=== PATIENT | male | born 1975 | race Caucasian/White ===

== ENCOUNTER 2017-02-21 01:32 | Emergency (ER) | payer MEDICARE, OTHER, MEDICAID ==
--- NOTE | 2017-02-21 02:28 | ER Document Report ---
ED Psych Disorder / Suicide - General Chief Complaint: Psych Problem Stated Complaint: IVC WITH PAPERS Time Seen by Provider: 02/21/17 02:15 TRAVEL OUTSIDE OF THE [place] IN LAST 30 DAYS: No - HPI Notes: This is a 41-year-old male with history of type 2 diabetes presents with IVC papers. Apparently he has been in people that he is worthless and he has been considered to be suicidal. Also he has not been sleeping at all last 5 days. Reported to staff that he had taken quite a few extra OxyContin for the last period of time. He at this point has no physical complaints to me. He is awakened and states he is sleepy. Denies any new pain to me. There was a note that he had fallen and injured his elbow - Related Data Allergies/Adverse Reactions: Sulfa (Sulfonamide Antibiotics) Allergy (Verified 02/21/17 01:47) Home Medications: Current Home Medications Allopurinol [Zyloprim 100 mg Tablet] 100 mg PO BID 02/21/17 [History] Alprazolam 1 mg PO PRN 02/21/17 [History] Duloxetine HCl [Cymbalta] 60 mg PO DAILY 02/21/17 [History] Esomeprazole Mag Trihydrate [Nexium] 40 mg PO DAILY 02/21/17 [History] Linagliptin [Tradjenta] 5 mg PO DAILY 02/21/17 [History] Lisinopril/Hydrochlorothiazide [Lisinopril-Hctz 20-25 mg Tab] 1 tab PO DAILY [History] Past Medical History - General Information source: Patient, Relative - Social History Smoking Status: Current Every Day Smoker Family History: Reviewed & Not Pertinent Patient has suicidal ideation: No Patient has homicidal ideation: No Endocrine Medical History: Reports: Hx Diabetes Mellitus Type 2 Renal/ Medical History: Denies: Hx Peritoneal Dialysis Psychiatric Medical History: Reports: Other - Unspecified mental disorder with IQ 81 per report Review of Systems - Review of Systems -: Yes All other systems reviewed and negative Physical Exam - Vital signs Vitals: Temp Pulse Resp BP Pulse Ox 97.9 F 97 20 118/74 96 02/21/17 01:41 02/21/17 01:41 02/21/17 01:41 02/21/17 01:41 02/21/17 01:41 - Notes Notes: GENERAL: VS as per nursing doc. Well-appearing, well-nourished and in no acute distress. Sleeping and snoring without apnea noted HEAD: Atraumatic, normocephalic EYES: Sclera anicteric, no conjunctival injection or discharge. ENT: Moist mucous membranes. NECK: Supple without lymphadenopathy. LUNGS: Breath sounds clear to auscultation bilaterally and equal. No wheezes rales or rhonchi. HEART: Regular rate and rhythm without murmurs. Peripheral pulses present. ABDOMEN: Soft, non-tender. EXTREMITIES: Chronic venous stasis changes with surrounding erythema. NEUROLOGICAL: Cranial nerves grossly intact. Normal speech. No gross motor or sensory abnormalities. PSYCH: Oriented 3. Calm, directable. No active evidence of hallucinations or delusions. No reported suicidal or homicidal ideation. SKIN: Warm, dry. Multiple areas of excoriations largest being the left iliac crest area with surrounding erythema and cellulitic appearance. Course - Re-evaluation Re-evalutation: 02/21/17 02:28 Patient presents with IVC papers. It is reported that he will get very combative at times and has labile behavior. We will proceed with evaluation. He will need treatment for his apparent cellulitis. 02/21/17 04:54 Is medically cleared for the psychiatric unit. He will need further treatment as is noted by the prescription on the chart at the time of his final disposition. - Vital Signs Vital signs: Temp Pulse Resp BP Pulse Ox 98.4 F 81 20 123/70 98 02/21/17 05:05 02/21/17 05:05 02/21/17 05:05 02/21/17 05:05 02/21/17 05:05 - Laboratory Result Diagrams: 02/21/17 03:57 02/21/17 03:57 Laboratory results interpreted by me: 02/21/17 02/21/17 02/21/17 02:40 03:57 03:57 Plt Count 145 L Sodium 134.5 L Glucose 133 H Direct Bilirubin 0.6 H Urine Protein 100 H Urine Blood SMALL H Salicylates < 1.0 L Acetaminophen < 10 L - EKG Interpretation by Nc EKG shows normal: Sinus rhythm Rate: Tachycardia - Sinus tach at 102 with fairly diffuse flattening and nonspecific T-wave abnormalities, normal QRS duration Discharge - Discharge Clinical Impression: Cellulitis, Suicidal ideation Condition: Fair Disposition: PSYCH HOSP/UNIT Prescriptions: Clindamycin HCl [Cleocin 300 mg Capsule] 300 mg PO Q6 #30 capsule
[2017-02-21 03:33] LABS: APPEARANCE,URINE CLEAR; BILIRUBIN,URINE NEGATIVE (NEGATIVE); GLUCOSE, URINE NEGATIVE (NEGATIVE); KETONES,URINE NEGATIVE (NEGATIVE); LEUKOCYTE ESTERASE,URINE NEGATIVE (NEGATIVE); NITRITE,URINE NEGATIVE (NEGATIVE); PROTEIN,URINE 100 mg/dL (NEGATIVE); URINE SPECIFIC GRAVITY 1.012; UROBILINOGEN,URINE NEGATIVE mg/dL (<2.0)
[2017-02-21 03:45] LABS: URINE BARBITURATES SCREEN NEGATIVE; URINE METHADONE SCREEN NEGATIVE; URINE OPIATES LOW UNCONFIRMED POSITIVE; URINE PHENCYCLIDINE SCREEN NEGATIVE
[2017-02-21 04:17] LABS: ABSOLUTE BASOPHILS # (AUTO) 0.1 10^3/uL (0.0-0.2); ABSOLUTE EOSINOPHILS # (AUTO) 0.1 10^3/uL (0.0-0.6); ABSOLUTE LYMPHOCYTES (AUTO) 1.3 10^3/uL (0.5-4.7); ABSOLUTE MONOCYTES (AUTO) 0.8 10^3/uL (0.1-1.4); ABSOLUTE NEUT (AUTO) 7.8 10^3/uL (1.7-8.2); BASOPHILS % (AUTO) 0.7 % (0-2); EOSINOPHILS % (AUTO) 1.1 % (0-6); HEMATOCRIT 48.4 % (37.9-51.0); HEMOGLOBIN 15.9 g/dL (13.5-17.0); HGB HCT DIFFERENCE -0.7; LYMPHOCYTES % (AUTO) 13.3 % (13-45); MEAN CORPUSCULAR HEMOGLOBIN 30.6 pg (27.0-33.4); MEAN CORPUSCULAR HGB CONC 32.8 g/dL (32.0-36.0); MEAN CORPUSCULAR VOLUME 93 fl (80-97); MONOCYTES % (AUTO) 7.9 % (3-13); RED BLOOD COUNT 5.18 10^6/uL (4.35-5.55); WHITE BLOOD COUNT 10.1 10^3/uL (4.0-10.5)
[2017-02-21 04:28] LABS: ALANINE AMINOTRANSFERASE 23 U/L (21-72); ALBUMIN 3.8 g/dL (3.5-5.0); ALKALINE PHOSPHATASE 93 U/L (38-126); ANION GAP 10 (5-19); ASPARTATE AMINO TRANSFERASE 24 U/L (17-59); BILIRUBIN,DIRECT 0.6 mg/dL (0.0-0.4); BILIRUBIN,TOTAL 1.3 mg/dL (0.2-1.3); BLOOD UREA NITROGEN 14 mg/dL (7-20); CALCIUM 9.3 mg/dL (8.4-10.2); CARBON DIOXIDE 26 mmol/L (22-30); CHLORIDE 99 mmol/L (98-107); CREATININE RESULT 0.83 mg/dL (0.52-1.25); GLUCOSE 133 mg/dL (75-110); POTASSIUM 4.7 mmol/L (3.6-5.0); SODIUM 134.5 mmol/L (137-145); TOTAL PROTEIN 7.2 g/dL (6.3-8.2)
[2017-02-21 04:29] LABS: ALCOHOL < 10 mg/dL (NONE DETECTED)
[2017-02-21] MEDS ORDERED: CLINDAMYCIN HCL 150 MG CAPSULE PO ONE (04:56)
--- NOTE | 2017-02-21 10:31 | EKG REPORT ---
SEVERITY:- BORDERLINE ECG - SINUS TACHYCARDIA BORDERLINE T ABNORMALITIES, ANTERIOR LEADS : Confirmed by: Teri Bridges MD 21-Feb-2017 10:30:34
--- NOTE | 2017-02-21 15:47 | PSYCHOLOGICAL NOTE ---
Psych Note - Psych Note Psych Note: This is a 41-year-old male with history of type 2 diabetes presents with IVC papers. Apparently he has been in people that he is worthless and he has been considered to be suicidal. Also he has not been sleeping at all last 5 days. Reported to staff that he had taken quite a few extra OxyContin for the last period of time. He at this point has no physical complaints to me. He is awakened and states he is sleepy. Denies any new pain to me. There was a note that he had fallen and injured his elbow Patient states his elbow is in pain. He continued to disclose that he is upset his mother "did this to me." He states that he always has depression and right now "I hate myself but that does not mean I am going to go off myself." Patient states he is has chronic pain and sees both his regular doctor and his mental health provider regularly. Patient receives services from [facility] and gets his medication from [facility] in [place]. He is diagnosed with Agoraphobia and suffers from panic attacks. He continued to disclose that his mother came over after he fell and when they came over their family friend, Aria, went through his medication and "figured out I didn't have as many as I should." He states that he is a "grown man" and when he asked for everyone to leave he became upset when they didn't. He confirmed he refused EMS services when he fell because he wanted to go to the doctor on Saturday. Clinician spoke with patient's mother, sister and family friend, Aria. They disclosed concern the patient has not been caring for himself properly. They continued to disclose last night the patient text his mother saying he thought he took to much of his medication and when they got there he had fallen. They continued to disclose the patient is abusing his medications. They confirmed the patient is seen at [facility] and they will be "submitting a referral" for him. They are unsure what referral it is but think it is for Ch. Patient is alert and orientated to person, place, time and circumstance. Mood is euthymic with congruent affect; clinician notes some irritability with current situation. Patient denies suicidal and homicidal ideation; endorses chronic depression. patient denies auditory and visual hallucinations; patient is not demonstrating behaviour congruent with responding to internal stimuli ( i.e. good eye contact and though processes are organized). No delusions are noted. Thought process is organized and linear. Eye contact was well maintained. Intellectual abilities appear to be low average range. Attention and concentration and good. Insight, judgment and impulse control are poor. 311 (F32.9) unspecified depressive disorder per history provided by patient 319 (F79) Unspecified intellectual disability per history provided by patient's family. R/O Substance abuse Impression/Plan: patient is recommended for rescind of IVC and is considered psychiatrically clear for discharge. Patient does not meet IVC criteria per [place] 122C. Patient is recommended to follow up with his outpatient mental health provider [facility], and receive a substance abuse assessment to determine needed treatment. It is also recommended the family seek assistance to ensure all psychsocial needs for the patient are being met and determine if he needs a higher level of care or possible assigned legal guardian. Clinician provided contact numbers to [facility] and [facility]. Dr. Scott was consulted on the care and management of this patient; attending physician is in agreement with recommendations and disposition.
[2017-02-21 16:59] VITALS: BP 101/53
--- NOTE | 2017-02-21 20:37 | ER Document Report ---
Doctor's Note Notes: 02/21/17 20:33 Rounds from earlier this afternoon. Mental health has assessed the patient and feels he can be discharged for outpatient care. Patient and family had concerns about medical issues and I went and talked with them about pain in his left elbow from falling and landing on his elbow sometime during last night, a sore on the tip of his tongue, and several erythematous areas of apparent infection/cellulitis on various locations of the patient's body, but especially the lower extremities. The patient's elbow is able to be flexed and extended fairly well without a lot of resistance or pain the elbow is certainly an joint. It is also not very swollen and I do not think it is anything broken but I did order an x-ray of the elbow. However, the patient and family decided after all of that that they did not want the x-ray after all. I advised him to return for reevaluation if they were concerned at a later time. Patient has a small little viral lesion on the tip of his tongue which I am sure is painful, but does not look infectious (bacterial). Told the patient there is very little to be done for this other than time. Patient has several areas of cellulitis of both lower extremities. He has a large central eschar surrounded by erythema of the left belt line, but no abscess present. The initial evaluating doctor has written a prescription for clindamycin 300 mg 4 times a day, #30 in the family and patient were advised to fill the prescription and take until finished. Cleanse the areas of cellulitis with gentle soap and water at least twice a day and try to keep the areas as dry as possible. Patient appears medically stable for transfer or discharge and he is being discharged for outpatient follow-up. Erica Mccallum MD
== END 2017-02-21 16:59 | disposition home or self-care (01) ==
LOC: ER 01:32
DX: F32.9 Major depressive disorder, single episode, unspecified (principal); F79 Unspecified intellectual disabilities; L03.116 Cellulitis of left lower limb; K14.8 Other diseases of tongue; L03.115 Cellulitis of right lower limb; B97.89 Other viral agents as the cause of diseases classified elsewhere; M25.522 Pain in left elbow; W19.XXXA Unspecified fall, initial encounter; R00.0 Tachycardia, unspecified; F11.10 Opioid abuse, uncomplicated; E11.9 Type 2 diabetes mellitus without complications; F17.200 Nicotine dependence, unspecified, uncomplicated; Z88.2 Allergy status to sulfonamides
CPT/HCPCS: 36415; 80053; 80307; 81001; 85025; 93005; 93010; 99285

== ENCOUNTER 2018-05-18 14:20 | Inpatient (IN) | payer MEDICARE, MEDICAID ==
[2018-05-18] MEDS ORDERED: ASPIRIN 81 MG TABLET, CHEWABLE PO ONE (15:13)
--- NOTE | 2018-05-18 15:36 | RADIOLOGY REPORT (SQ) ---
EXAM DESCRIPTION: CHEST SINGLE VIEW COMPLETED DATE/TIME: 05/18/2018 3:25 pm REASON FOR STUDY: chest pain COMPARISON: Chest x-ray 09/25/2009. EXAM PARAMETERS: NUMBER OF VIEWS: One view. TECHNIQUE: Single frontal radiographic view of the chest acquired. RADIATION DOSE: NA LIMITATIONS: None. FINDINGS: LUNGS AND PLEURA: No consolidation, pneumothorax or pleural effusion. MEDIASTINUM AND HILAR STRUCTURES: No masses. Contour normal. HEART AND VASCULAR STRUCTURES: Heart upper normal limit in size. Normal vasculature. BONES: No acute findings. HARDWARE: None in the chest. IMPRESSION: NO ACUTE RADIOGRAPHIC FINDING IN THE CHEST. TECHNICAL DOCUMENTATION: JOB ID: [id number] [id number] 2010 [employer]- All Rights Reserved Reading location - IP/workstation name: [email or web address]
[2018-05-18 15:47] LABS: ABSOLUTE BASOPHILS # (AUTO) 0.2 10^3/uL (0.0-0.2); ABSOLUTE EOSINOPHILS # (AUTO) 0.2 10^3/uL (0.0-0.6); ABSOLUTE LYMPHOCYTES (AUTO) 1.6 10^3/uL (0.5-4.7); ABSOLUTE MONOCYTES (AUTO) 0.8 10^3/uL (0.1-1.4); ABSOLUTE NEUT (AUTO) 8.6 10^3/uL (1.7-8.2); BASOPHILS % (AUTO) 1.4 % (0-2); EOSINOPHILS % (AUTO) 1.3 % (0-6); HEMATOCRIT 47.1 % (37.9-51.0); HEMOGLOBIN 15.7 g/dL (13.5-17.0); LYMPHOCYTES % (AUTO) 14.1 % (13-45); MEAN CORPUSCULAR HEMOGLOBIN 30.9 pg (27.0-33.4); MEAN CORPUSCULAR HGB CONC 33.4 g/dL (32.0-36.0); MEAN CORPUSCULAR VOLUME 92 fl (80-97); MONOCYTES % (AUTO) 7.3 % (3-13); PLATELET COUNT 202 10^3/uL (150-450); RED CELL DISTRIBUTION WIDTH 13.8 % (11.5-14.0); SEGMENTED NEUTROPHILS % (AUTO) 75.9 % (42-78); TOTAL CELLS COUNTED % (AUTO) 100 %; WHITE BLOOD COUNT 11.3 10^3/uL (4.0-10.5)
[2018-05-18 15:54] LABS: INTERNATIONAL RATION (INR) 1.01; PROTHROMBIN TIME 13.8 SEC (11.4-15.4)
[2018-05-18] MEDS ORDERED: ONDANSETRON HCL INJ/PF 4 MG/2 ML SDV IV ONE (15:56)
[2018-05-18] MEDS ORDERED: MORPHINE SULFATE 10 MG/ML INJ IV ONE (15:56)
[2018-05-18 15:57] LABS: D-DIMER 1.75 ug/mL (0.00-0.50)
[2018-05-18 16:06] LABS: ALANINE AMINOTRANSFERASE 24 U/L (21-72); ALKALINE PHOSPHATASE 94 U/L (38-126); ANION GAP 15 (5-19); ASPARTATE AMINO TRANSFERASE 17 U/L (17-59); BILIRUBIN,DIRECT 0.4 mg/dL (0.0-0.4); BILIRUBIN,TOTAL 0.5 mg/dL (0.2-1.3); BLOOD UREA NITROGEN 13 mg/dL (7-20); CALCIUM 9.9 mg/dL (8.4-10.2); CARBON DIOXIDE 27 mmol/L (22-30); CHLORIDE 100 mmol/L (98-107); CREATINE KINASE 22 U/L (55-170); GLUCOSE 141 mg/dL (75-110); POTASSIUM 4.3 mmol/L (3.6-5.0); SODIUM 141.6 mmol/L (137-145); TOTAL PROTEIN 7.8 g/dL (6.3-8.2)
[2018-05-18 16:18] LABS: CREATINE KINASE MB < 0.22 ng/mL (<4.55); TROPONIN I < 0.012 ng/mL
--- NOTE | 2018-05-18 16:18 | ER Document Report ---
ED General - General Chief Complaint: Chest Wall Pain Stated Complaint: CHEST WALL PAIN Time Seen by Provider: 05/18/18 14:34 Mode of Arrival: Ambulatory Information source: Patient TRAVEL OUTSIDE OF THE [place] IN LAST 30 DAYS: No - HPI Onset: Last week Onset/Duration: Gradual Quality of pain: Sharp Severity: Moderate Pain Level: 4 Associated symptoms: Chest pain Exacerbated by: Denies Relieved by: Denies Similar symptoms previously: No Recently seen / treated by doctor: No - Related Data Allergies/Adverse Reactions: Sulfa (Sulfonamide Antibiotics) Allergy (Verified 02/21/17 01:47) Past Medical History - Social History Smoking Status: Current Every Day Smoker Family History: Reviewed & Not Pertinent Patient has suicidal ideation: No Patient has homicidal ideation: No - Past Medical History Cardiac Medical History: Reports: Hx Hypertension Endocrine Medical History: Reports: Hx Diabetes Mellitus Type 2 Renal/ Medical History: Denies: Hx Peritoneal Dialysis Psychiatric Medical History: Reports: Hx Attention Deficit Hyperactivity Disorder, Hx Depression Review of Systems - Review of Systems Constitutional: denies: Chills, Fever EENT: denies: Eye pain, Eye discharge Cardiovascular: Chest pain. denies: Dyspnea Respiratory: denies: Cough, Short of breath Gastrointestinal: denies: Abdomen distended, Abdominal pain, Diarrhea, Nausea, Vomiting Genitourinary: No symptoms reported Male Genitourinary: No symptoms reported Musculoskeletal: No symptoms reported Skin: No symptoms reported Hematologic/Lymphatic: No symptoms reported Neurological/Psychological: No symptoms reported -: Yes All other systems reviewed and negative Physical Exam - Vital signs Vitals: Pulse Ox 96 05/18/18 14:28 - General General appearance: Appears well, Alert In distress: Mild - HEENT Head: Normocephalic, Atraumatic Eyes: Normal Pupils: PERRL - Respiratory Respiratory status: No respiratory distress Chest status: Nontender Breath sounds: Normal Chest palpation: Normal - Cardiovascular Rhythm: Regular Heart sounds: Normal auscultation Murmur: No - Abdominal Inspection: Normal Distension: No distension Bowel sounds: Normal Tenderness: Nontender Organomegaly: No organomegaly - Back Back: Normal, Nontender - Extremities General upper extremity: Normal inspection, Nontender, Normal color, Normal ROM , Normal temperature General lower extremity: Normal inspection, Nontender, Normal color, Normal ROM , Normal temperature, Normal weight bearing. No: Edvin's sign - Neurological Neuro grossly intact: Yes Cognition: Normal Orientation: AAOx4 Gage Coma Scale Eye Opening: Spontaneous [place] Coma Scale Verbal: Oriented [place] Coma Scale Motor: Obeys Commands [place] Coma Scale Total: 15 Speech: Normal Motor strength normal: LUE, RUE, LLE, RLE Sensory: Normal - Psychological Associated symptoms: Normal affect, Normal mood - Skin Skin Temperature: Warm Skin Moisture: Dry Skin Color: Normal Course - Vital Signs Vital signs: Temp Pulse Resp BP Pulse Ox 100.9 F H 20 117/75 95 05/18/18 19:43 05/18/18 17:58 05/18/18 19:00 05/18/18 19:01 - Laboratory Result Diagrams: 05/18/18 15:38 05/18/18 15:38 Laboratory results interpreted by me: 05/18/18 05/18/18 05/18/18 15:38 15:38 15:38 WBC 11.3 H Absolute Neutrophils 8.6 H D-Dimer 1.75 H Glucose 141 H Creatine Kinase 22 L Urine Protein Urine Blood 05/18/18 16:50 WBC Absolute Neutrophils D-Dimer Glucose Creatine Kinase Urine Protein 100 H Urine Blood SMALL H - Diagnostic Test Radiology reviewed: Image reviewed, Reports reviewed - EKG Interpretation by Me EKG shows normal: Sinus rhythm Rate: Normal - 81 Rhythm: NSR When compared to previous EKG there are: No significant change Additional EKG results interpreted by me: 05/18/18 16:[address] and T wave changes. No STEMI. - Transfer of Care Notes: 05/18/18 18:12 Patient CARE was discussed with the hospitalist on-call Dr. Kat Acuña. She will admit patient to the hospital for further evaluation and management. Critical Care Note - Critical Care Note Total time excluding time spent on procedures (mins): 40 Discharge - Discharge Clinical Impression: Pulmonary embolism and infarction, Pulmonary embolism on right, Chest pain at rest Condition: Stable Disposition: ADMITTED INPATIENT Admitting Provider: Dr Kat Acuña. Unit Admitted: Telemetry
--- NOTE | 2018-05-18 17:26 | EKG REPORT ---
SEVERITY:- ABNORMAL ECG - SINUS RHYTHM NONSPECIFIC T ABNORMALITIES, ANTERIOR LEADS : Confirmed by: Teri Bridges MD 18-May-2018 17:26:13
--- NOTE | 2018-05-18 17:52 | RADIOLOGY REPORT (SQ) ---
EXAM DESCRIPTION: CTA CHEST COMPLETED DATE/TIME: 05/18/2018 5:24 pm REASON FOR STUDY: Chest Pain . Right-sided chest pain. COMPARISON: Chest x-ray 05/18/2018. TECHNIQUE: CT scan of the chest performed using helical scanning technique with dynamic intravenous contrast injection. Images reviewed with lung, soft tissue and bone windows. Reconstructed coronal and sagittal MPR images reviewed. Additional 3 dimensional post-processing performed to develop Maximal Intensity Projection images (CO P). All images stored on PACS. All CT scanners at this facility use dose modulation, iterative reconstruction, and/or weight based d osing when appropriate to reduce radiation dose to as low as reasonably achievable (ALARA). [facility]: Dose Right [facility]: CareDose [facility]: Dose Right [facility]: Teradose 4D [facility]: [employer] CONTRAST TYPE AND DOSE: contrast/concentration: Isovue 350.00 mg/ml; Total Contrast Delivered: 165.0 ml; Total Saline Delivered: 157.0 ml Contrast bolus optimized for the pulmonary arteries. Not diagnostic for the aorta. RENAL FUNCTION: Creatinine 0.87. RADIATION DOSE: CT Rad equipment meets quality standard of care and radiation dose reduction techniq ues were employed. CTDIvol: 13.2 - 40.1 mGy. DLP: 3016 mGy-cm. . LIMITATIONS: There is suboptimal contrast opacification of the pulmonary arterial tree on the initia l study and on the repeat study. FINDINGS: LUNGS AND PLEURA: There is a pleural based wedge shape ground-glass opacity the lateral ri ght middle lobe. Smaller pleural based airspace opacity is seen at the right upper lobe. No pleural effusion or pneumothorax. AORTA AND GREAT VESSELS: No thoracic aortic aneurysm. Contrast bolus not optimized for the aorta. HEART: The heart is mildly enlarged. No pericardial effusion. No significant coronary artery calcifi cations. PULMONARY ARTERIES: There is suboptimal contrast opacification of the pulmonary arterial tree. Filli ng defects are seen within the segmental branches of the right upper, right middle and right lower lo bes. No obvious filling defects at the main pulmonary arteries. HILAR AND MEDIASTINAL STRUCTURES: Subcarinal lymph node is measuring 18 mm in short axis. No patholo gically enlarged lymph nodes are seen at the bilateral hilar regions. HARDWARE: None in the chest. UPPER ABDOMEN: The visualized liver is enlarged and has diffuse decreased attenuation, most consisten t with fatty infiltration. The visualized spleen is enlarged measuring 16.3 cm. THYROID AND OTHER SOFT TISSUES: The visualized thyroid gland is unremarkable. BONES: Mild multilevel degenerative changes at the spine. 3D MIPS: Confirm above findings. IMPRESSION: 1. Suboptimal contrast opacification of the pulmonary arterial tree. Acute pulmonary em boli at the right lung. 2. Pleural based airspace opacities at the right middle lobe and right upper lobe, probably represent ing pulmonary infarcts given the above findings. Followup CT thorax after treatment recommended to e nsure complete resolution and exclude a different etiology. 3. Mild cardiomegaly. 4. Mild mediastinal adenopathy. 5. Hepatosplenomegaly. Fatty infiltration of the liver. COMMENT: Pertinent positive or negative findings of the imaging study reported as a CRITICAL EXAM t magui CURTIS MD at17:49 hrs on 05/18/2018. Category of Critical Exam: Acute pulmonary emboli at the right lung. Pulmonary infarcts. Quality ID # [id number]: Final reports with documentation of one or more dose reduction techniques (e.g., Au tomated exposure control, adjustment of the mA and/or kV according to patient size, use of iterative reconstruction technique) TECHNICAL DOCUMENTATION: JOB ID: [id number] [place]-[id number] 2010 [employer]- All Rights Reserved Reading location - IP/workstation name: [email or web address]
[2018-05-18 17:54] LABS: APPEARANCE,URINE SLIGHTLY-CLOUDY; BILIRUBIN,URINE NEGATIVE (NEGATIVE); COLOR,URINE YELLOW; GLUCOSE, URINE NEGATIVE (NEGATIVE); KETONES,URINE NEGATIVE (NEGATIVE); LEUKOCYTE ESTERASE,URINE NEGATIVE (NEGATIVE); NITRITE,URINE NEGATIVE (NEGATIVE); PROTEIN,URINE 100 mg/dL (NEGATIVE); URINE SPECIFIC GRAVITY 1.021; UROBILINOGEN,URINE NEGATIVE mg/dL (<2.0)
[2018-05-18 18:16] LABS: URINE AMPHETAMINES SCREEN NEGATIVE; URINE BARBITURATES SCREEN NEGATIVE; URINE BENZODIAZEPINES SCREEN UNCONFIRMED POSITIVE; URINE COCAINE SCREEN NEGATIVE; URINE MARIJUANA (THC) SCREEN NEGATIVE; URINE METHADONE SCREEN NEGATIVE; URINE PHENCYCLIDINE SCREEN NEGATIVE
[2018-05-18] MEDS ORDERED: ALBUTEROL SULFATE 0.083% NEB 2.5 MG/3 ML AMPUL NEB PRN (19:53)
[2018-05-18] MEDS ORDERED: 1/2 NORMAL SALINE 1,000 ML IV PRN (19:53)
[2018-05-18] MEDS ORDERED: INSULIN LISPRO 100 UNIT/ML 3 ML VIAL SUBCUT PRN (20:02)
[2018-05-18] MEDS ORDERED: DEXTROSE 40% GEL 15 GM TUBE PO PRN ×2 (20:02)
[2018-05-18] MEDS ORDERED: DEXTROSE 50%-WATER 25 GM/50 ML DISP.SYRIN IV PRN ×2 (20:02)
[2018-05-18] MEDS ORDERED: GLUCAGON,HUMAN RECOMB 1 MG INJ IM PRN (20:02)
--- NOTE | 2018-05-18 20:04 | PDOC H&P ---
History of Present Illness Admission Date/PCP: 05/18/18 18:53 CHEST PAIN. History of Present Illness: JAYSHREE GALAN is a 42 year old male presenting with complains of right-sided chest pain. Patient states that earlier today afternoon he was resting in bed and he woke up with Sharp chest pain that was transient and lasted a few seconds and it went away. The pain was 10 out of 10 patient has shortness of breath and he decided to call EMS. Patient was noted to be hypoxic when he talks on presentation. Upon history taking patient is comfortable satting above 90% on room air. She did not is a morbidly obese male with past medical history of hypertension diabetes dyslipidemia and ADD. Patient is disabled and does not work. Past Medical History Cardiac Medical History: Reports: Hypertension, Other Endocrine Medical History: Reports: Diabetes Mellitus Type 2, Obesity Psychiatric Medical History: Reports: Attention Deficit Hyperactivity Disorder, Depression Social History Information Source: Patient Smoking Status: Current Every Day Smoker Family History Family History: Reviewed & Not Pertinent, Malignancy Parental Family History Reviewed: Yes Children Family History Reviewed: No Sibling(s) Family History Reviewed.: No Medication/Allergy Home Medications: Allopurinol [Zyloprim 100 mg Tablet] 100 mg PO BID 02/21/17 Alprazolam 1 mg PO PRN 02/21/17 Clindamycin HCl [Cleocin 300 mg Capsule] 300 mg PO Q6 #30 capsule 02/21/17 Duloxetine HCl [Cymbalta] 60 mg PO DAILY 02/21/17 Esomeprazole Mag Trihydrate [Nexium] 40 mg PO DAILY 02/21/17 Linagliptin [Tradjenta] 5 mg PO DAILY 02/21/17 Lisinopril/Hydrochlorothiazide [Lisinopril-Hctz 20-25 mg Tab] 1 tab PO DAILY Allergies/Adverse Reactions: Sulfa (Sulfonamide Antibiotics) Allergy (Verified 02/21/17 01:47) Review of Systems Constitutional: ABSENT: fever(s), headache(s) Cardiovascular: PRESENT: chest pain. ABSENT: palpitations Respiratory: PRESENT: dyspnea Physical Exam Vital Signs: Temp Pulse Resp BP Pulse Ox 20 117/75 95 05/18/18 17:58 05/18/18 19:00 05/18/18 19:01 General appearance: PRESENT: no acute distress, cooperative, morbidly obese Head exam: PRESENT: atraumatic, normocephalic Eye exam: PRESENT: EOMI Ear exam: PRESENT: normal external ear exam Respiratory exam: PRESENT: clear to auscultation ania, unlabored. ABSENT: accessory muscle use, rhonchi, wheezes Cardiovascular exam: PRESENT: RRR GI/Abdominal exam: PRESENT: soft. ABSENT: guarding, tenderness Rectal exam: PRESENT: deferred Neurological exam: PRESENT: alert, awake, oriented to person, oriented to place , oriented to time, CN II-XII grossly intact Psychiatric exam: ABSENT: agitated, anxious Results Impressions: Chest X-Ray 05/18/18 15:14 IMPRESSION: NO ACUTE RADIOGRAPHIC FINDING IN THE CHEST. Chest/Abdomen CTA 05/18/18 16:13 IMPRESSION: 1. Suboptimal contrast opacification of the pulmonary arterial tree. Acute pulmonary emboli at the right lung. 2. Pleural based airspace opacities at the right middle lobe and right upper lobe, probably representing pulmonary infarcts given the above findings. Followup CT thorax after treatment recommended to ensure complete resolution and exclude a different etiology. 3. Mild cardiomegaly. 4. Mild mediastinal adenopathy. 5. Hepatosplenomegaly. Fatty infiltration of the liver. Assessment & Plan - Diagnosis (1) Chest pain at rest Is this a current diagnosis for this admission?: Yes Plan: Attributed to right-sided pulmonary embolism and multilobar pulmonary infarct. We will cycle cardiac enzymes. EKG shows artifact however sinus rhythm with Q waves in lead III. EKG also shows T-wave inversion in leads V1 to V3 (2) Pulmonary embolism and infarction Is this a current diagnosis for this admission?: Yes Plan: Patient started on anticoagulation with Lovenox 1 mg/kg every 12 for stress now. (3) Diabetes Qualifiers: Diabetes mellitus type: type 2 Is this a current diagnosis for this admission?: Yes Plan: Patient to the place on sliding scale coverage while in the hospital. (4) HTN (hypertension) Is this a current diagnosis for this admission?: Yes Plan: We will continue home medication for blood pressure control. - Time Critical Time spent with patient: 15-24 minutes Anticipated discharge: Home - Inpatient Certification Based on my medical assessment, after consideration of the patient's comorbidities, presenting symptoms, or acuity I expect that the services needed warrant INPATIENT care.: Yes I certify that my determination is in accordance with my understanding of Medicare's requirements for reasonable and necessary INPATIENT services [42 CFR 412.3e].: Yes Medical Necessity: Need Close Monitoring Due to Risk of Patient Decompensation, Risk of Complication if Not Cared For in Hospital
[2018-05-18] MEDS ORDERED: CLINDAMYCIN HCL 150 MG CAPSULE PO ONE (20:30)
[2018-05-18] MEDS: MORPHINE SULFATE 10 MG/ML INJ IV PRN (21:07)
[2018-05-18] MEDS: PANTOPRAZOLE SODIUM 40 MG VIAL IV SCH (21:11)
[2018-05-18] MEDS: ENOXAPARIN SODIUM INJ 150 MG/1 ML DISP.SYRIN SUBCUT SCH (21:16)
[2018-05-18] MEDS ORDERED: ALLOPURINOL 100 MG TABLET ONE (21:46)
[2018-05-18] MEDS: ALLOPURINOL 100 MG TABLET PO SCH (22:35)
[2018-05-18] MEDS: ALPRAZOLAM 0.5 MG TABLET PO SCH (22:37)
[2018-05-19] MEDS: MORPHINE SULFATE 10 MG/ML INJ IV PRN ×2 (02:27→09:53)
[2018-05-19] MEDS: CLINDAMYCIN HCL 150 MG CAPSULE PO SCH ×2 (02:33→09:59)
[2018-05-19] MEDS ORDERED: MORPHINE SULFATE 10 MG/ML INJ IV ONE (05:00)
[2018-05-19 06:39] LABS: HEMATOCRIT 46.5 % (37.9-51.0); HEMOGLOBIN 15.3 g/dL (13.5-17.0); MEAN CORPUSCULAR HEMOGLOBIN 30.7 pg (27.0-33.4); MEAN CORPUSCULAR VOLUME 93 fl (80-97); PLATELET COUNT 200 10^3/uL (150-450); RED BLOOD COUNT 4.99 10^6/uL (4.35-5.55); RED CELL DISTRIBUTION WIDTH 13.9 % (11.5-14.0); WHITE BLOOD COUNT 10.5 10^3/uL (4.0-10.5)
[2018-05-19 06:41] LABS: APPEARANCE,URINE CLEAR; BILIRUBIN,URINE NEGATIVE (NEGATIVE); COLOR,URINE STRAW; GLUCOSE, URINE NEGATIVE (NEGATIVE); KETONES,URINE NEGATIVE (NEGATIVE); LEUKOCYTE ESTERASE,URINE TRACE (NEGATIVE); NITRITE,URINE NEGATIVE (NEGATIVE); PROTEIN,URINE NEGATIVE (NEGATIVE); URINE SPECIFIC GRAVITY 1.013; UROBILINOGEN,URINE NEGATIVE mg/dL (<2.0)
[2018-05-19 06:46] LABS: ARTERIAL BLOOD BASE EXCESS -0.1 mmol/L; ARTERIAL BLOOD HCO3 25.2 mmol/L (20-26); ARTERIAL BLOOD PCO2 43.1 mmHg (35-45); ARTERIAL BLOOD PH 7.38 (7.35-7.45); ARTERIAL BLOOD PO2 92.6 mmHg (80-100); ARTERIAL BLOOD TOTAL CO2 26.5 mmol/L (23-27)
[2018-05-19 06:50] LABS: ARTERIAL BLOOD FIO2 21%
[2018-05-19 06:54] LABS: BLOOD UREA NITROGEN 14 mg/dL (7-20); CALCIUM 9.3 mg/dL (8.4-10.2); GLUCOSE 118 mg/dL (75-110)
[2018-05-19 06:55] LABS: ALANINE AMINOTRANSFERASE 25 U/L (21-72); ALBUMIN 3.7 g/dL (3.5-5.0); ALKALINE PHOSPHATASE 87 U/L (38-126); ANION GAP 14 (5-19); ASPARTATE AMINO TRANSFERASE 16 U/L (17-59); BILIRUBIN,DIRECT 0.3 mg/dL (0.0-0.4); BILIRUBIN,TOTAL 0.5 mg/dL (0.2-1.3); CARBON DIOXIDE 27 mmol/L (22-30); CHLORIDE 98 mmol/L (98-107); PHOSPHORUS 4.4 mg/dL (2.5-4.5); SODIUM 138.8 mmol/L (137-145); TOTAL PROTEIN 7.3 g/dL (6.3-8.2)
[2018-05-19 07:07] LABS: PROTHROMBIN TIME 13.7 SEC (11.4-15.4)
[2018-05-19 07:08] LABS: PARTIAL THROMBOPLASTIN TIME 36.3 SEC (23.5-35.8)
[2018-05-19 08:12] LABS: FREE T4 (FREE THYROXINE) 1.34 ng/dL (0.78-2.19)
[2018-05-19 08:26] LABS: THYROID STIMULATING HORMONE 2.24 uIU/mL (0.47-4.68)
[2018-05-19] MEDS: ALPRAZOLAM 0.5 MG TABLET PO SCH (09:59)
[2018-05-19] MEDS ORDERED: HYDROCHLOROTHIAZIDE 25 MG TABLET PO SCH (10:00)
[2018-05-19] MEDS ORDERED: LISINOPRIL 10 MG TABLET PO SCH (10:00)
[2018-05-19] MEDS: ALLOPURINOL 100 MG TABLET PO SCH (10:00)
[2018-05-19] MEDS ORDERED: DULOXETINE HCL 30 MG CAPSULE.DR PO SCH (10:00)
[2018-05-19] MEDS ORDERED: KETOROLAC TROMETHAMINE INJ/PF 30 MG/1 ML SDV IV ONE (10:30)
[2018-05-19] MEDS: ENOXAPARIN SODIUM INJ 150 MG/1 ML DISP.SYRIN SUBCUT SCH (10:58)
[2018-05-19] MEDS: PANTOPRAZOLE SODIUM 40 MG VIAL IV SCH (10:58)
[2018-05-19] MEDS ORDERED: NICOTINE 21 MG/24 HR PATCH.TD24 TD SCH (11:00)
--- NOTE | 2018-05-19 15:47 | PDOC DISCHARGE SUMMARY ---
General - Admit/Disc Date/PCP Admission Date/Primary Care Provider: 05/18/18 18:53 Discharge Date: 05/19/18 - Discharge Diagnosis (1) Pulmonary embolism and infarction Is this a current diagnosis for this admission?: Yes Summary: Patient found to have right-sided right upper lobe and right middle lobe segmental PE with pulmonary infarcts. he is started on Lovenox 1.5 mg twice a day therapy. Computer Forensics Analyst consulted to evaluate patient. Plan is to discharge patient home on apixaban 10 mg twice a day for 7 days, followed by 5 mg twice a day thereafter. Patient is to follow-up with Dr. Sotelo [facility] in the next 2 weeks. (2) Chest pain at rest Is this a current diagnosis for this admission?: Yes Summary: Attributed due to pulmonary infarct and pulmonary embolism. Patient given prescription for [place] for 5 days. (3) Diabetes Is this a current diagnosis for this admission?: Yes Summary: Patient to resume his diabetes medications and follow-up with his primary care for hospital follow-up in 1 week. (4) HTN (hypertension) Is this a current diagnosis for this admission?: Yes Summary: Hypertension stable patient to resume his home hypertensive medications. Patient to follow-up with his primary care physician. Patient encouraged to get a sleep apnea treated. - Additional Information Home Medications: Allopurinol [Zyloprim 100 mg Tablet] 100 mg PO BID 05/19/18 Duloxetine HCl [Cymbalta] 60 mg PO DAILY 05/19/18 Esomeprazole Magnesium [Nexium] 40 mg PO DAILY 05/19/18 Linagliptin [Tradjenta] 5 mg PO DAILY 05/19/18 Lisinopril/Hydrochlorothiazide [Zestoretic 20-25 mg Tablet] 1 tab PO DAILY 05/19 History of Present Illness History of Present Illness: JAYSHREE GALAN is a 42 year old male presenting with complains of right-sided chest pain. Patient states that earlier today afternoon he was resting in bed and he woke up with Sharp chest pain that was transient and lasted a few seconds and it went away. The pain was 10 out of 10 patient has shortness of breath and he decided to call EMS. Patient was noted to be hypoxic when he talks on presentation. Upon history taking patient is comfortable satting above 90% on room air. She did not is a morbidly obese male with past medical history of hypertension diabetes dyslipidemia and ADD. Patient is disabled and does not work. Hospital Course Hospital Course: Courses brief patient is a 42-year-old male brought by EMS for acute onset right-sided chest pain that was transient 10 out of 10 initial presentation. Patient was noted to be short of breath on presentation and hypoxic. Patient had tachypnea and tachycardia due to the pain. Patient was found to be hypoxic even on talking. Initial supportive care provided patient had a CTA due to the elevated d-dimer which showed right upper lobe and right middle lobe segmental PE with pulmonary infarct. Results of the CAT scan discussed with Dr. Dr. Hays due to the suboptimal imaging. Per Dr. hays repeat CAT scan was done which as well was suboptimal. Patient was initiated on Lovenox therapy. Patient was seen and evaluated by pulmonary Dr. Sotelo. Per patient Dr. Sotelo feels patient is stable to go home and continue his anticoagulation therapy. Complications of PE discussed with patient's complications of anticoagulation therapy discussed with patient. Tobacco cessation discussed with patient. Physical Exam Vital Signs: Temp Pulse Resp BP Pulse Ox 98.3 F 96 20 113/73 98 05/19/18 11:23 05/19/18 14:00 05/19/18 11:23 05/19/18 11:23 05/19/18 11:23 Intake & Output 05/18/18 05/19/18 05/20/18 06:59 06:59 06:59 Intake Total 1000 Balance 1000 Weight 313 lb 7.957 oz General appearance: PRESENT: no acute distress, cooperative, morbidly obese Head exam: PRESENT: atraumatic, normocephalic Eye exam: PRESENT: EOMI Ear exam: PRESENT: normal external ear exam Respiratory exam: PRESENT: clear to auscultation ania Cardiovascular exam: PRESENT: RRR GI/Abdominal exam: PRESENT: normal bowel sounds, soft. ABSENT: distended, guarding, tenderness Rectal exam: PRESENT: heme (-) stool Extremities exam: PRESENT: pedal edema, +2 edema Neurological exam: PRESENT: alert, awake, oriented to person, oriented to place , oriented to time, CN II-XII grossly intact Results Laboratory Results: 05/19/18 06:15 05/19/18 06:15 08/12/18 08/13/18 08/13/18 19:37 06:15 06:15 WBC 10.5 RBC 4.99 Hgb 15.3 Hct 46.5 MCV 93 MCH 30.7 MCHC 33.0 RDW 13.9 Plt Count 200 Carbonic Acid HCO3/H2CO3 Ratio ABG pH ABG pCO2 ABG pO2 ABG HCO3 ABG O2 Saturation ABG Base Excess FiO2 Sodium 138.8 Potassium 4.0 Chloride 98 Carbon Dioxide 27 Anion Gap 14 BUN 14 Creatinine 0.87 Est GFR ( Amer) > 60 Est GFR (Non-Af Amer) > 60 Glucose 118 H Calcium 9.3 Phosphorus 4.4 Magnesium 1.6 Total Bilirubin 0.5 AST 16 L ALT 25 Alkaline Phosphatase 87 Total Protein 7.3 Albumin 3.7 TSH Free T4 Urine Color Urine Appearance Urine pH Ur Specific [place] Urine Protein Urine Glucose (UA) Urine Ketones Urine Blood Urine Nitrite Ur Leukocyte Esterase Urine WBC (Auto) Urine RBC (Auto) Stool Occult Blood NEGATIVE 05/19/18 05/19/18 05/19/18 06:15 06:25 06:30 WBC RBC Hgb Hct MCV MCH MCHC RDW Plt Count Carbonic Acid 1.30 HCO3/H2CO3 Ratio 19:1 ABG pH 7.38 ABG pCO2 43.1 ABG pO2 92.6 ABG HCO3 25.2 ABG O2 Saturation 97.0 ABG Base Excess -0.1 FiO2 21% Sodium Potassium Chloride Carbon Dioxide Anion Gap BUN Creatinine Est GFR ( Amer) Est GFR (Non-Af Amer) Glucose Calcium Phosphorus Magnesium Total Bilirubin AST ALT Alkaline Phosphatase Total Protein Albumin TSH 2.24 Free T4 1.34 Urine Color STRAW Urine Appearance CLEAR Urine pH 6.0 Ur Specific [place] 1.013 Urine Protein NEGATIVE Urine Glucose (UA) NEGATIVE Urine Ketones NEGATIVE Urine Blood MODERATE H Urine Nitrite NEGATIVE Ur Leukocyte Esterase TRACE H Urine WBC (Auto) 5 Urine RBC (Auto) 0 Stool Occult Blood 05/18/18 05/18/18 05/18/18 19:29 19:29 19:29 Creatine Kinase 26 L CK-MB (CK-2) < 0.22 Troponin I < 0.012 NT-Pro-B Natriuret Pep 05/19/18 05/19/18 05/19/18 02:00 02:00 06:15 Creatine Kinase 21 L CK-MB (CK-2) < 0.22 Troponin I NT-Pro-B Natriuret Pep 36 05/19/18 05/19/18 06:15 06:15 Creatine Kinase 24 L CK-MB (CK-2) 0.34 Troponin I NT-Pro-B Natriuret Pep Impressions: Chest X-Ray 05/18/18 15:14 IMPRESSION: NO ACUTE RADIOGRAPHIC FINDING IN THE CHEST. Chest/Abdomen CTA 05/18/18 16:13 IMPRESSION: 1. Suboptimal contrast opacification of the pulmonary arterial tree. Acute pulmonary emboli at the right lung. 2. Pleural based airspace opacities at the right middle lobe and right upper lobe, probably representing pulmonary infarcts given the above findings. Followup CT thorax after treatment recommended to ensure complete resolution and exclude a different etiology. 3. Mild cardiomegaly. 4. Mild mediastinal adenopathy. 5. Hepatosplenomegaly. Fatty infiltration of the liver. Qualifiers - * PATIENT BEING DISCHARGED WITH ANY OF THE FOLLOWING DIAGNOSIS: VTE (PE or DVT) VTE patient discharged on overlapping Therapy?: No Reason(s) for not prescribing Overlap Therapy:: Not indicated - Patient started on Eliquis 10 mg twice a day for 7 days followed by 5 mg twice a day thereafter. This does not require overlapping therapy.
--- NOTE | 2018-05-19 16:15 | RADIOLOGY REPORT (SQ) ---
EXAM DESCRIPTION: VENOUS BILATERAL LOWER COMPLETED DATE/TIME: 05/19/2018 4:08 pm REASON FOR STUDY: SWELLING IN LOWER EXTREMITIES COMPARISON: None. TECHNIQUE: Dynamic and static garcia scale and color images acquired of both lower extremity venous sy stems. Selected spectral images acquired with additional compression and augmentation maneuvers. Imag es stored on PACS. LIMITATIONS: Body habitus. Nonvisualization of the peroneal veins. FINDINGS: RIGHT LEG COMMON FEMORAL AND FEMORAL: Normal phasicity, compression and augmentation. No visualized echogenic m aterial on garcia scale. No defects on color images. POPLITEAL: Normal compression and augmentation. No visualized echogenic material on garcia scale. No de fects on color images. CALF VESSELS: Normal compression and augmentation. No visualized echogenic material on garcia scale. No defects on color image. GSV AND SSV: Normal compression. No visualized echogenic material on garcia scale. No defects on color images. ANY DEEP VENOUS INSUFFICIENCY: Not evaluated. ANY EVIDENCE OF POPLITEAL CYST: No. OTHER: No other significant finding. LEFT LEG COMMON FEMORAL AND FEMORAL: Normal phasicity, compression and augmentation. No visualized echogenic m aterial on garcia scale. No defects on color images. POPLITEAL: Normal compression and augmentation. No visualized echogenic material on garcia scale. No de fects on color images. CALF VESSELS: Normal compression and augmentation. No visualized echogenic material on garcia scale. No defects on color images. GSV AND SSV: Normal compression. No visualized echogenic material on garcia scale. No defects on color images. ANY DEEP VENOUS INSUFFICIENCY: Not evaluated. ANY EVIDENCE POPLITEAL CYST: No. OTHER: No other significant finding. IMPRESSION: NO EVIDENCE DVT OR SVT IN EITHER LEG. TECHNICAL DOCUMENTATION: JOB ID: [id number] [employer] All Rights Reserved Reading location - IP/workstation name: [email or web address]
[2018-05-19 16:19] VITALS: BP 107/66
[2018-05-19] MEDS ORDERED: IBUPROFEN 800 MG TABLET PO SCH (17:00)
== END 2018-05-19 16:35 | disposition home or self-care (01) | DRG 176 ==
LOC: ER 14:20 → EH 18:53 → 4W 05-19 02:55 → 5 05-19 11:11
PROVIDERS: ADMIT Internal Medicine; ATTEND Internal Medicine
DX: I26.99 Other pulmonary embolism without acute cor pulmonale (principal); Z68.41 Body mass index [BMI] 40.0-44.9, adult; R09.02 Hypoxemia; I10 Essential (primary) hypertension; E11.8 Type 2 diabetes mellitus with unspecified complications; R07.89 Other chest pain; E78.5 Hyperlipidemia, unspecified; F90.9 Attention-deficit hyperactivity disorder, unspecified type; E66.01 Morbid (severe) obesity due to excess calories; F17.210 Nicotine dependence, cigarettes, uncomplicated
CPT/HCPCS: 36415; 36600; 71045; 71275; 80053; 80307; 81001; 82272; 82550; 82553; 82803; 82962; 83036; 83735; 83880; 84100; 84439; 84443; 84484; 85025; 85027; 85379; 85610; 85730; 93005; 93010; 93970; 96374; 96375; 99291; J1885; J2270; J2405; J3490; S0164